=== PATIENT | female | born 1965 | race Caucasian/White ===

== ENCOUNTER 2024-10-11 09:45 | Outpatient (CLI) | payer OTHER | END 2024-10-11 09:46 | disposition home or self-care (01) | LOC: CSHWCC 09:45 | PROVIDERS: ATTEND Nurse Practitioner Family | DX: L97.111 Non-pressure chronic ulcer of right thigh limited to breakdown of skin (principal) | CPT/HCPCS: 11042 ==

== ENCOUNTER 2024-10-18 10:36 | Outpatient (CLI) | payer OTHER | END 2024-10-18 10:37 | disposition home or self-care (01) | LOC: CSHWCC 10:36 | PROVIDERS: ATTEND Nurse Practitioner Family | DX: L97.111 Non-pressure chronic ulcer of right thigh limited to breakdown of skin (principal) | CPT/HCPCS: 11042; 97597; 99212; G0463 ==

== ENCOUNTER 2024-10-27 08:44 | Outpatient (CLI) | payer OTHER | END 2024-10-27 08:45 | disposition home or self-care (01) | LOC: CSHWCC 08:44 | PROVIDERS: ATTEND Nurse Practitioner Family | DX: L97.211 Non-pressure chronic ulcer of right calf limited to breakdown of skin (principal); L97.312 Non-pressure chronic ulcer of right ankle with fat layer exposed | CPT/HCPCS: 97597 ==